=== PATIENT | female | born 1930 | race Caucasian/White ===

== ENCOUNTER 2017-04-22 05:57 | Inpatient (IN) ==
[2017-04-22] MEDS ORDERED: MAGNESIUM SULF RIDER 2 GM in PREMIX 1 EACH IV PRN (05:58)
[2017-04-22] MEDS ORDERED: diphenhydrAMINE CAP 25 MG CAPSULE PO ONE (05:58)
[2017-04-22] MEDS ORDERED: DIAZEPAM 5 MG TABLET PO ONE (05:58)
[2017-04-22] MEDS ORDERED: ASPIRIN 325 MG TABLET PO ONE (05:58)
[2017-04-22] MEDS ORDERED: POTASSIUM CHLORIDE RIDER 10 MEQ in PREMIX 1 EACH IV PRN (05:58)
[2017-04-22] MEDS ORDERED: DEXTROSE 5% NACL 0.45% 1,000 ML IV SCH (06:00)
[2017-04-22 07:34] LABS: Basophils # 0.1 10*3/uL (0.0-0.2); Basophils % 1.5 % (0.0-0.8); Eosinophils % 21.3 % (0.00-10.9); Hematocrit 36.6 VOL% (35.7-47.0); Hemoglobin 12.8 GM/DL (12.0-16.0); Immature Granulocytes % 0.7 %; Immature Granulocytes Absolute 0.06 #; Lymphocytes # 1.2 10*3/uL (1.4-4.0); Mean Corpuscular Hemoglobin 30 PG (27-34); Mean Corpuscular Volume 85.3 FL (87-102); Mean Platelet Volume 10.3 FL (9.6-12.0); Monocytes # 0.8 10*3/uL (0.11-0.8); Monocytes % 8.5 % (1.7-12.7); Platelet Count 184 T/CUMM (130-400); Red Blood Count 4.29 MC/CUMM (3.8-5.5); Red Cell Distribution Width 13.8 % (9.3-17.3); White Blood Count 9.1 T/CUMM (4-12)
[2017-04-22 07:46] LABS: INR 1.1; PT Patient Result 11.1 SECS
[2017-04-22 07:59] LABS: Calcium 9.6 MG/DL (8.5-10.1); Osmolality,Calculated 286.8 MOS/KG (273-304)
[2017-04-22] MEDS ORDERED: DIAZEPAM 5 MG TABLET ONE (08:11)
[2017-04-22] MEDS ORDERED: diphenhydrAMINE CAP 25 MG CAPSULE ONE (08:12)
[2017-04-22] MEDS ORDERED: HEPARIN/NACL 0.9% 2 UNITS/ML 1,000 ML IV ONE (08:15)
[2017-04-22] MEDS ORDERED: LIDOCAINE 1%/EPI INJ 20 ML VIAL ONE (08:26)
[2017-04-22] MEDS ORDERED: MIDAZOLAM 2 MG/2 ML VIAL ONE (08:50)
[2017-04-22] MEDS ORDERED: HYDROmorphone 2 MG/1 ML VIAL ONE (08:51)
[2017-04-22 09:08] LABS: Eosinophils 14 % (0-10); Hypochromasia 1+; Lymphocytes 12 % (20-55); Microcytosis 1+; Platelet Estimate Adequate; Polychromasia Slight; Segmented Neutrophils 65 % (50-85); Total Cells Counted 100
[2017-04-22] MEDS ORDERED: TIROFIBAN 5,000 MCG/100 ML PREMIX IV ONE (09:34)
[2017-04-22] MEDS ORDERED: HEPARIN 5,000 UNIT/1 ML VIAL ONE (09:34)
[2017-04-22] MEDS ORDERED: TIROFIBAN 5,000 MCG/100 ML PREMIX IV SCH (09:41)
[2017-04-22] MEDS ORDERED: CLOPIDOGREL 300 MG TABLET ONE (09:49)
[2017-04-22] MEDS ORDERED: predniSONE 20 MG TABLET PO PRN (10:15)
[2017-04-22] MEDS ORDERED: NITROGLYCERIN SL 0.4 MG TABLET SL PRN (10:15)
--- NOTE | 2017-04-22 11:21 | XRay Report ---
Exam: XR chest 1V portable Date: 04/22/2017 5:59 AM Indication: Chest pain Comparison: 06/03/2016 Technical: AP Findings: Cardiomegaly is present with previous sternotomy. Degenerative arthritic change present over the shoulders with high riding appearance the humeral head and subchondral cystic changes present. Mild shunt vascularity. Interval atelectatic change in the left base. Mediastinum is intact. Impression: 1. Cardiomegaly with tiny low volume left effusion 2. Previous sternotomy 3. Underlying component of mild fibrotic scarring in the lung morales 4. Degenerative arthritic change of the right shoulder PROCEDURE INTERPRETED AT [facility] Final Report Signed by: Dr. Ankit Bro
[2017-04-22] MEDS: ALBUTEROL/IPRATROPIUM 3 ML NEB RESP TX SCH ×2 (15:38→18:45)
[2017-04-22] MEDS: FUROSEMIDE 40 MG TABLET PO SCH (17:28)
[2017-04-22] MEDS ORDERED: BENZONATATE 100 MG CAPSULE PO PRN (18:26)
--- NOTE | 2017-04-22 18:44 | Event Note ---
Patient catheterization apparent intervention today. The patient was short of breath and coughing. She has COPD. She has normal ejection fraction normal LVDP on catheterization. The patient probably is having exacerbation of her COPD. She has not received any bronchodilator therapy today. Requested go ahead and continue her bronchodilator therapy give her a dose now. We will pursue other avenues if necessary.
[2017-04-22] MEDS ORDERED: ALBUTEROL/IPRATROPIUM 3 ML NEB RESP TX PRN (19:00)
[2017-04-22] MEDS: HYDROmorphone 2 MG/1 ML VIAL IV PRN (19:05)
[2017-04-22] MEDS: THEOPHYLLINE ER (24 HR) 400 MG CAPSULE PO SCH (21:45)
[2017-04-22] MEDS: POTASSIUM CHLORIDE 20 MEQ TABLET PO SCH (21:45)
[2017-04-22] MEDS: ISOSORBIDE MONONITRATE 30 MG TABLET PO SCH (21:45)
[2017-04-22] MEDS: ALBUTEROL 0.4 MG/ML 30 ML/BOTTLE PO SCH (21:45)
[2017-04-22] MEDS: CLOTRIMAZOLE 1% CREAM 15 GM TUBE TOP SCH (21:45)
[2017-04-22] MEDS: FAMOTIDINE 20 MG TABLET PO SCH (21:45)
[2017-04-23] MEDS: ALBUTEROL/IPRATROPIUM 3 ML NEB RESP TX SCH ×5 (00:44→22:39)
[2017-04-23 03:12] LABS: Basophils # 0.1 10*3/uL (0.0-0.2); Basophils % 1.1 % (0.0-0.8); Eosinophils # 1.5 10*3/uL (0.0-0.87); Eosinophils % 13.1 % (0.00-10.9); Hematocrit 33.6 VOL% (35.7-47.0); Hemoglobin 11.4 GM/DL (12.0-16.0); Immature Granulocytes % 0.5 %; Immature Granulocytes Absolute 0.06 #; Lymphocytes # 1.3 10*3/uL (1.4-4.0); Lymphocytes % 11.1 % (21.3-54.2); Mean Corpuscular HGB Conc 33.9 GM/DL (32-36); Mean Corpuscular Hemoglobin 29 PG (27-34); Mean Corpuscular Volume 85.9 FL (87-102); Mean Platelet Volume 10.2 FL (9.6-12.0); Monocytes # 1.4 10*3/uL (0.11-0.8); Monocytes % 11.5 % (1.7-12.7); Neutrophils # 7.4 10*3/uL (1.4-7.4); Neutrophils % 62.7 % (38.7-73.9); Platelet Count 191 T/CUMM (130-400); Red Blood Count 3.91 MC/CUMM (3.8-5.5); White Blood Count 11.7 T/CUMM (4-12)
[2017-04-23 03:43] LABS: Calcium 8.7 MG/DL (8.5-10.1); Magnesium 2.1 MG/DL (1.8-2.4); Osmolality,Calculated 281.3 MOS/KG (273-304); Potassium 4.3 MMOL/L (3.5-5.1)
[2017-04-23 03:48] LABS: Apearance,Urine CLEAR (Clear); Bilirubin,Urine Negative (Negative); Blood, Urine Negative (Negative); Glucose,Urine (UA) Negative (Negative); Hyaline Casts,Urine 1 /LPF (0-3); Ketones,Urine Negative (Negative); Nitrite,Urine Negative (Negative); Protein,Urine Negative; RBC,Urine 1 /HPF (0-4); Renal Epithelial Cells,Urine Occasional /HPF (<1); Squamous Epithelial Cell,Urine Occasional /HPF (0-10); Urine Color Straw (Yellow); Urine Urobilinogen < 2.0 EU/DL (0.2-1.0); WBC,Urine 3 /HPF (0-6)
[2017-04-23 03:57] LABS: Band Neutrophils 2 % (0-10); Eosinophils 12 % (0-10); Lymphocytes 10 % (20-55); Platelet Estimate Normal; Segmented Neutrophils 66 % (50-85); Total Cells Counted 100
[2017-04-23] MEDS: HYDROmorphone 2 MG/1 ML VIAL IV PRN ×3 (04:33→23:33)
--- NOTE | 2017-04-23 07:22 | Order Completion Report ---
See report scanned to EMR
[2017-04-23] MEDS: ASPIRIN EC 81 MG TABLET PO SCH (09:31)
[2017-04-23] MEDS: MULTIVITAMIN (CENTRUM) TABLET PO SCH (09:31)
[2017-04-23] MEDS: FUROSEMIDE 40 MG TABLET PO SCH ×2 (09:31→17:37)
[2017-04-23] MEDS: MONTELUKAST 10 MG TABLET PO SCH (09:32)
[2017-04-23] MEDS: POTASSIUM CHLORIDE 20 MEQ TABLET PO SCH ×2 (09:32→21:29)
[2017-04-23] MEDS: CARVEDILOL 12.5 MG TABLET PO SCH (09:32)
[2017-04-23] MEDS: CLOPIDOGREL 75 MG TABLET PO SCH (09:33)
[2017-04-23] MEDS: FAMOTIDINE 20 MG TABLET PO SCH ×2 (09:33→21:28)
--- NOTE | 2017-04-23 09:42 | XRay Report ---
XR chest 2V Date: 04/23/2017 7:25 AM History: Cough, fever Comparison: 04/22/2017 Technique: PA and lateral chest Findings: The heart appears smaller in size with prior median sternotomy and multiple cardiac coronary artery stents. The lungs appear more over expanded with chronic scarring. Ill-defined density laterally in the left midlung zone. Stable mediastinum with degenerative changes. Prior cholecystectomy. Impression: Status post median sternotomy with chronic scarring. The lungs appear more over expanded with atelectasis/infiltration at the lung bases. Indeterminate ill-defined 18 mm density laterally in the left midlung zone near the level of the left sixth anterior rib. Follow-up chest x-ray is recommended. PROCEDURE INTERPRETED AT [facility] DEPARTMENT OF RADIOLOGY Final Report Signed by: Dr. Felipa Mays
--- NOTE | 2017-04-23 11:14 | Pulmonology Consult Note ---
History of Present Illness Chief complaint: Flap in windpipe. Cough. Post cardiac cath History of present illness: Ms. Floyd is a 87 year old white female who I have been asked to see in pulmonary consultation. This patient is post cardiac catheterization. She had a sten they do not have a lot of insight and I do not think there are going to require this. T placed in the mid circumflex. There was a widely patent single vein graft to the right coronary artery. There was moderate disease in the LAD with a distal myocardial bridge. There was normal left ventricular size and function. This patient and her daughter complain of cough which is worse recently. This however is been present on a long-term basis. I saw the patient in my office on 03/05/2017 and subsequently referred her to Dr. Ochoa to look for worsening of her cardiac disease. At that time the patient complained that was a flap in her trachea. I spent an extremely long time with the patient and her daughter discussing this and a number of other problems. They do not have a lot of insight even with very good explanations. This is not likely to improve. Allergies. Zocor. Darvocet/Darvon. Sulfa. TriCor made her feel terrible. Amoxicillin caused itching and rash. Prednisone "threw me crazy". Her daughter added that prednisone made her mean. Allopurinol caused diarrhea Home medicines. See below Hospital medicines. See below Immunology. Pneumovax was given 2007. Patient gets yearly flu shot. Past history. COPD. Bronchospastic disease. 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 Degenerative joint disease. Chronic renal failure. 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 Venous bypass to the right coronary artery. Stent to the mid circumflex. Hyperlipidemia. Allergic sinusitis. Gout. Hypertension. Thoracic deformity. Sciatic. History of colon polyps. History of mild peptic ulcer disease followed by Dr. Ady Cuello at [facility]. History of recurrent muscle spasms over the thoracolumbar junction associated with turning. Previous fracture left foot in February 2010 which was treated by Dr. Shawn Burnett. [address] April Ray for colitis with eosinophilia and she improved with treatment. My records show that Dr. Ray to told the patient and her daughter that this was micro-cystic colitis with associated eosinophilia and that he felt there was about a 30% chance she would have another attack. He said if this occurred again he would treat her in a similar fashion. In December 2008 she had a random colon biopsy that showed moderate superficial chronic inflammation with focal mild surface erosions and hemorrhage within the lamina propria. The pathologist, Dr. Mendoza said the differential would include early ischemic colitis, self-limiting colitis, diverticulitis, possible early inflammatory disease. Colon biopsies done 2015 showed benign colon mucosa with increased inflammation in the superficial lamina propria and increased eosinophilia with surface epithelial consistent with with resolving self-limited colitis. At that time a jejunal biopsy was normal. 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 Family history of brother and father had heart attacks. Sister had colon cancer. Aside suddenly. Her brother had asthma. Surgeries. Rotator cuff surgery by Dr. Emmy Viera in May 2010. Coronary artery bypass graft in 2002. Cholecystectomy around 1955. Appendectomy. Tubal ligation 1960. Hysterectomy 1975. Social history. . Retired. Worked as an temporary staff accountant. Denies alcohol and tobacco. Followed in [facility] by Dr. Altaf Bailey. Patient usually is seen in my office along with her daughter Chayo Pulmonary function test done 08/03/2005 showed 1. Mild obstructive disease. 2. Marked positive response to inhaled bronchodilators 3. No diffusion defect. 4. Maximum voluntary ventilation after inhaled bronchodilators was 62 L/min was 87% of predicted Chest x-ray. 04/23/2017. Heart size is normal. Pulmonary arteries normal both hilar areas contain interstitial scarring with calcification that has a benign appearance. Mediastinum is normal wire sutures are present in the sternum lung morales are slightly hyperinflated with no masses infiltrates or pulmonary edema. There is mild kyphosis of the dorsal spine. Lab. White count 11,900 with 63 segs 11 lymphs and 11 monos. H&H 11.4/33.6. Platelets are 191 7000. Electrolytes are normal. Creatinine is 1.3 with a BUN of 13. Urinalysis is normal. Glucoses are normal Physical exam. Vital signs. Normal. See below Psychiatric. Oriented 3 Neurologic. Cranial nerves are intact with decreased hearing acuity. Long track motor functions intact Head eyes ears nose and throat are normal. Neck. Symmetrical. No masses. Lymphatics. No submandibular cervical supraclavicular or epitrochlear adenopathy. Chest symmetrical kyphotic. Tracheal and large airway congestion with a cough. No chest wall tenderness. I do not hear any wheezes. Patient has mild pectus excavatum. Heart. Regular. No gallop Breast deferred Abdomen. No organomegaly. Nontender. Bowel sounds are present. and rectal deferred Extremities trace of edema below each medial malleolus. There are broken veins and some associated brownish skin discoloration secondary to chronic venous stasis. Patient has small lipoma over the proximal right medial tibial area. Arterial carotid upstroke is normal upper extremity pulses are palpable lower extremity pulses are nonpalpable. Venous exam. Neck and upper extremities are normal lower extremities show chronic venous stasis Musculoskeletal mild loss of normal curvature cervical thoracic and lumbar spine. Pectus excavatum. Degenerative changes of the hands and feet. The remainder the physical exam is noncontributory. Impression. 1. Mild obstructive lung disease. Asthma. 2. Bronchitis with a cough. Patient says she cannot produce any sputum. 3. Complaint of left flap over her trachea 4. Arteriosclerotic heart disease. Post cardiac cath. Stent placed in circumflex artery. 5. High blood pressure 6. Gout 7. Degenerative joint disease 8. See past Plan. 1. Sputum for Gram stain culture and sensitivity 2. Duo nebs 3. Inhalation therapy with Pulmozyme twice a day 4. Mucinex 600 mg p.o. twice daily 5. If you think is safe to evaluated with bronchoscopy I can do it while she is here. If you think it is better to wait we can arrange that later on. Home Medications Medication Instructions Recorded Confirmed Type Albuterol/Ipratropium Neb [Duoneb] 3 ml RESP TX RT Q6H 11/17/14 04/22/17 History Aspirin [Ecotrin] 81 mg PO DAILY 11/17/14 04/22/17 History Carvedilol [Coreg] 12.5 mg PO DAILY 11/17/14 04/22/17 History Furosemide Tab [Lasix Tab] 40 mg PO BID DIURETIC 11/17/14 04/22/17 History Montelukast Tab [Singulair Tab] 10 mg PO DAILY 11/17/14 04/22/17 History Multivitamin [Multivitamins] 1 each PO DAILY 11/17/14 04/22/17 History Potassium Chloride 20 meq PO BID 11/17/14 04/22/17 History Theophylline ER Tab (24 Hr) 200 tablet PO BID 11/17/14 04/22/17 History Famotidine 20 mg PO BID 04/21/17 04/22/17 History Ipratropium/Albuterol Inhaler 1 puff INH QID PRN 04/21/17 04/22/17 History [Combivent Respimat Inhaler] Nitroglycerin [Nitroglycerin SL 0.4 mg SL Q5M PRN 04/21/17 04/22/17 History Tab] Rosuvastatin Calcium 5 mg PO QOTHER DAY 04/21/17 04/22/17 History predniSONE TAB [PredniSONE] 20 mg PO DAILY PRN 04/21/17 04/22/17 History Albuterol Liquid [Proventil Liquid] 2 mg PO BID 04/22/17 04/22/17 History Isosorbide Mononitrate [Isosorbide 30 mg PO BEDTIME 04/22/17 04/22/17 History Mononitrate ER] Allergies Allergy/AdvReac Type Severity Reaction Status Date / Time acetaminophen Allergy Intermediate Unknown/Unable Verified 11/17/14 07:22 [From Darvocet-N 100] to obtain Amoxicillin Allergy Intermediate RASH Verified 11/17/14 07:22 fentanyl Allergy Intermediate Unknown/Unable Verified 11/17/14 07:22 to obtain morphine Allergy Intermediate Unknown/Unable Verified 11/17/14 07:22 to obtain propoxyphene Allergy Intermediate Unknown/Unable Verified 11/17/14 07:22 [From Darvocet-N 100] to obtain simvastatin [From Zocor] Allergy Intermediate Joint Pain Verified 11/17/14 07:22 sulfamethoxazole Allergy Intermediate RASH Verified 11/17/14 07:22 [From Bactrim] trimethoprim [From Bactrim] Allergy Intermediate RASH Verified 11/17/14 07:22 Exam (Pulmonay) H&P - Constitutional Vitals: Period Temp Pulse Resp BP Sys/Larkin Pulse Ox Last 24 Hr 98.3 F-101.9 F 53-93 16-20 98-148/45-83 91-100 Medical,Surgical,& Family Hx - Medical History Cardio: History of: CHF, CAD, [place] (2 heart attacks.) No history of: Cardiac Dysrhythmia, Pacemaker Comment Only: Hypertension (medication) Neurology: No history of: Brain Aneurysm, Cerebrovascular Accident, Migraine, Seizures HEENT: History of: Ear Problem (hearing aids left and right), Dental Problems ( upper and lower) No history of: Glaucoma Rheumatology: History of;: Gout, Rheumatoid Arthritis Respiratory: History of: Asthma, COPD Comment Only: Respiratory Problems (had flu vaccine up to date on pnuemonia) Gastrointestinal: History of: GERD, Polyps, GI Problems (dysphagia) Musculoskeletal: History of: Back/Neck Problems (disk problems in neck), Musculoskeletal Problems (arthritis) Hematology: No history of: Blood Transfusion Reaction Other: History of: Anesthesia Reactions (vomiting after anesthesia) - Surgical History Cardiac Surgeries: Sugical HX of: Cardiac Catheterization, Cardiac Surgery (1` bypass, 2 stents) Neurologic Surgeries: Patient denies: Brain Aneurysm HEENT Surgeries: Surgical HX of: Eye Surgery (cataract surgery both eyes), Tonsilectomy & Adenoidectomy Abdominal Surgeries: Surgical HX of: Abdominal Surgery, Appendectomy, Cholecystectomy, Colonoscopy Reproductive Surgeries: Surgical HX of;: Hysterectomy Patient denies;: Genitourinary Surgery Orthopedic Surgeries: Surgical HX of;: Orthopedic Surgery (right rotator cuff surgery) - Family History Family History: Reports;: Family Cancer (mother-ovarian, sister-colon,), Family Heart Disease (father brother) - Social History Smoking Status: Former smoker Frequency of Alcohol Use: None Type of Drug Use: None Results - Labs CBC & BMP: 04/23/17 02:58 04/23/17 02:58 Quality Measures - VTE Contraindication to Pharmacological VTE Prophylaxis: High Risk of Bleeding Specialty Discharge - Follow Up or Referrals
[2017-04-23] MEDS: DORNASE ALFA 2.5 MG/2.5 ML VIAL RESP TX SCH ×3 (13:38→21:31)
--- NOTE | 2017-04-23 14:02 | Cardiology Progress Note ---
<Flores Calles E - Last Filed: 04/23/17 13:43> Assessment and Plan - Time spent with patient Time spent with patient: Greater than 30 minutes (1) CAD (coronary artery disease) Status: Chronic Assessment and plan: SEE PLAN OF CARE LISTED BELOW Current Visit: Yes (2) Hypertension Status: Chronic Assessment and plan: SEE PLAN OF CARE LISTED BELOW Current Visit: Yes (3) Dyslipidemia Status: Chronic Assessment and plan: SEE PLAN OF CARE LISTED BELOW Current Visit: Yes (4) Dementia Status: Chronic Assessment and plan: SEE PLAN OF CARE LISTED BELOW Current Visit: Yes (5) Debilitated patient Status: Chronic Assessment and plan: SEE PLAN OF CARE LISTED BELOW Current Visit: Yes (6) Abnormal chest x-ray Status: Acute Assessment and plan: SEE PLAN OF CARE LISTED BELOW Current Visit: Yes (7) Fever Status: Acute Assessment and plan: SEE PLAN OF CARE LISTED BELOW Current Visit: Yes (8) Risk for falls Status: Chronic Assessment and plan: SEE PLAN OF CARE LISTED BELOW Current Visit: Yes Cardiology - PN: Subj Interval history: YOUTH CAREER SPECIALIST: DR. GONZALEZ OCHOA FINGER GRIP MACHINE OPERATOR: DR. PRASAD PUENTE PCP: DR. RICCO QUINONEZ SUMMARY: Ms. Floyd, 87WF, admitted April 22, 2017 for elective cardiac catheterization for recent abnormal stress test, LVEF 60%. She required PCI of the mid circumflex (see cardiac catheterization for additional information). She is followed for chronic stable CAD, COPD, hypertension, dyslipidemia and dementia. Patient has had shortness of breath with a cough for approximately 3 months. Patient has been instructed regarding the need for fiberoptic bronchoscopy to be performed by Dr. Puente. However, patient required cardiac catheterization prior to proceeding with FOB. 2016: Patient continues to be followed for chronic, stable CAD, hypertension, dyslipidemia, dementia. More acutely, she is being followed for recent PCI to circumflex coronary artery with SABINE. Also, patient has been febrile during the night with a temperature of 101.9F noted. Patient has dementia and most of this information I have obtained is from her daughter who is present at the bedside. No complaints of chest pain, heaviness or tightness. She continues to have a dry and hacking cough. Daughter reports that her mother does have frequent choking when swallowing certain liquids and certain foods. Chest x-ray reviewed this morning. It is abnormal. I have discussed this case with KATIE Granger, and at this time will treat with antibiotics to include Levaquin. I am concerned the patient may be aspirating and I will ask for swallow evaluation today. I have also discussed with Dr. Gonzalez Ochoa regarding the need for bronchoscopy. There are no cardiac contraindications to proceeding with FOB. Certainly, patient does have a significant amount of dementia and has been somewhat aggressive in her room today. We discussed the possibility of swing bed at discharge versus LTAC versus hospice versus home health versus [facility] placement. The daughter is considering all of these choices at this point. Right groin is soft, free of hematoma or bruit. I will further discuss with Dr. Scott and await additional recommendations. April 15, 2017 review of systems: Unable to obtain review of systems from patient but daughter reports the following: Cardiovascular: No chest pain, heaviness, tightness Pulmonary: Dry hacking cough, mild dyspnea on exertion. Gastrointestinal: No diarrhea, no abdominal bloating or pain IMPRESSION/PLAN: 1. CAD - status post PCI to circumflex. Continue aspirin, Plavix. Continue beta-sonja, statin. Blood pressure will not allow for introduction of MELO inhibitor. 2. SHORTNESS OF BREATH WITH ABNORMAL CHEST X-RAY - running a fever overnight. Outpatient fiberoptic bronchoscopy had been scheduled. Initiate Levaquin and anticipate patient may require FOB tomorrow. Will further discuss with pulmonology. Adding respiratory treatments, incentive spirometry. Swallow eval 3. HYPERTENSION - will continue to follow along and adjust medications accordingly during hospital stay. Would like to introduce an MELO inhibitor and hopefully, prior to discharge her blood pressure will allow for introduction 4. DYSLIPIDEMIA - continue lipid-lowering agent. 5. DEMENTIA - considering [facility] evaluation. Daughter considering. 6. FEVER - blood cultures pending, UA negative. Chest x-ray is abnormal. Treating for possible pneumonia versus other infectious process. 7. DEBILITATED PATIENT - consulted case management this morning to discuss options at discharge. 8. HIGH FALLS RISK - utilizing prevention of falls protocol. Exam (Progress Note) - Constitutional Vitals: Period Temp Pulse Resp BP Sys/Larkin Pulse Ox Last 24 Hr 98.3 F-101.9 F 53-93 16-20 98-148/45-83 91-100 Exam: General: [Appears well with no apparent distress.] [Pleasant and cooperative. ] [Appears comfortable.] HEENT: [PERRL, normocephalic, atraumatic. Mucous membranes moist. No jaundice noted. Conjunctiva moist and clear, sclerae anicteric] Neck: No JVD/HJR, no thyromegaly or lymphadenopathy noted. No carotid bruit appreciated Cardiac: [Regular rate and rhythm.] [No murmur rub or gallop.] Lungs: [Inspiratory crackles noted throughout both lung morales. No orthopnea] Using oxygen intermittently Abdomen: Soft, bowel sounds normoactive. Nontender and nondistended. No abdominal bruit or thrill noted. No masses noted. Musculoskeletal: No fluid collection. Decreased range of motion is noted. Extremities: Right groin soft, free of hematoma or bruit. No clubbing, cyanosis noted. [ No edema noted.] Upper extremity pulses 2+. Lower extremity pulses 2+. Capillary refill less than 3 seconds. Skin: No unusual lesions or rashes. No skin breakdown appreciated. Neuro: Awake, alert and oriented to person. Moves all extremities well without hemiparesis or paralysis. No essential tremor is appreciated. Result/EKG - Labs CBC & BMP: 04/23/17 02:58 04/23/17 02:58 Lab Results: I have reviewed the past 24 hour labs Labs: Laboratory Results - last 24 hr 04/22/17 04/23/17 04/23/17 19:23 01:30 02:58 WBC RBC Hgb Hct MCV MCH MCHC RDW Plt Count MPV Neut % (Auto) Lymph % (Auto) [place]bert % (Auto) Eos % (Auto) Baso % (Auto) Neut # (Auto) Lymph # (Auto) [place] # (Auto) Eos # (Auto) Baso # (Auto) Total Counted Immature Gran % Nucleated RBC % Immature Gran # Segmented Neutrophils Band Neutrophils Lymphocytes Monocytes Eosinophils Nucleated RBCs # Platelet Estimate Immature Plt Fraction Sodium Potassium Chloride Carbon Dioxide Anion Gap BUN Creatinine GFR Calculation BUN/Creatinine Ratio Glucose Calculated Osmolality Calcium Magnesium Troponin I 0.032 0.087 H D Urine Color Straw Urine Appearance Clear Urine pH 5.0 Ur Specific Odin 1.010 Urine Protein Negative Urine Glucose (UA) Negative Urine Ketones Negative Urine Blood Negative Urine Nitrate Negative Urine Bilirubin Negative Urine Urobilinogen < 2.0 H Urine Leukocytes Negative Urine RBC 1 Urine WBC 3 Ur Squamous Epith Cells Occasional Ur Renal Epithelial Cell Occasional Hyaline Casts 1 Ur Culture Indicated? Not indicated 04/23/17 04/23/17 02:58 02:58 WBC 11.7 RBC 3.91 Hgb 11.4 L Hct 33.6 L MCV 85.9 L MCH 29 MCHC 33.9 RDW 14.0 Plt Count 191 MPV 10.2 Neut % (Auto) 62.7 Lymph % (Auto) 11.1 L [place] % (Auto) 11.5 Eos % (Auto) 13.1 H Baso % (Auto) 1.1 H Neut # (Auto) 7.4 Lymph # (Auto) 1.3 L [place] # (Auto) 1.4 H Eos # (Auto) 1.5 H Baso # (Auto) 0.1 Total Counted 100 Immature Gran % 0.5 Nucleated RBC % 0.0 Immature Gran # 0.06 Segmented Neutrophils 66 Band Neutrophils 2 Lymphocytes 10 L Monocytes 10 Eosinophils 12 H Nucleated RBCs # 0.00 Platelet Estimate Normal Immature Plt Fraction 0.0 Sodium 141 Potassium 4.3 Chloride 108 H Carbon Dioxide 28 Anion Gap 9.3 BUN 13 Creatinine 1.30 H GFR Calculation 38 BUN/Creatinine Ratio 10.00 Glucose 121 H Calculated Osmolality 281.3 Calcium 8.7 Magnesium 2.1 Troponin I Urine Color Urine Appearance Urine pH Ur Specific Od[place] Urine Protein Urine Glucose (UA) Urine Ketones Urine Blood Urine Nitrate Urine Bilirubin Urine Urobilinogen Urine Leukocytes Urine RBC Urine WBC Ur Squamous Epith Cells Ur Renal Epithelial Cell Hyaline Casts Ur Culture Indicated? - Diagnostic Findings Procedure: Chest x-ray: report reviewed by me - EKG EKG results: interpreted by me EKG shows: sinus rhythm Quality Measures - VTE Contraindication to Pharmacological VTE Prophylaxis: High Risk of Bleeding Specialty Discharge - Follow Up or Referrals <Ricco Scott - Last Filed: 04/23/17 16:40> Cardiology - PN: Subj Interval history: Patient personally reviewed and examined and chart reviewed. Discussed this case with Flores Calles NP and agree with the evaluation and assessment and plan. The patient's daughter was present on my evaluation. Patient cardiac standpoint post intervention the circumflex artery is doing very well. Not having any cardiac symptomatology or problems. She does note after procedure and not developed fever cough congestion in June kidding type symptomatology. In talking with the daughter the unit the patient she has been having a lot of coughing here the last several days of not a couple weeks or so. Dr. Ross of pulmonary medicine is evaluated the patient is treating her with antibiotics at this time. She certainly may have bronchitis or an aspiration pneumonia. She has chronic lung disease is followed by him for this. At this time we will continue to monitor her from a cardiac standpoint and make further reductions as appropriate needed. Exam (Progress Note) - Constitutional Vitals: Period Temp Pulse Resp BP Sys/Larkin Pulse Ox Last 24 Hr 98.8 F-101.9 F 73-96 16-20 98-148/47-83 91-98 Result/EKG - Labs CBC & BMP: 04/23/17 02:58 04/23/17 02:58 Labs: Laboratory Results - last 24 hr 04/22/17 04/23/17 04/23/17 19:23 01:30 02:58 WBC RBC Hgb Hct MCV MCH MCHC RDW Plt Count MPV Neut % (Auto) Lymph % (Auto) [place] % (Auto) Eos % (Auto) Baso % (Auto) Neut # (Auto) Lymph # (Auto) [place] # (Auto) Eos # (Auto) Baso # (Auto) Total Counted Immature Gran % Nucleated RBC % Immature Gran # Segmented Neutrophils Band Neutrophils Lymphocytes Monocytes Eosinophils Nucleated RBCs # Platelet Estimate Immature Plt Fraction Sodium Potassium Chloride Carbon Dioxide Anion Gap BUN Creatinine GFR Calculation BUN/Creatinine Ratio Glucose Calculated Osmolality Calcium Magnesium Troponin I 0.032 0.087 H D Urine Color Straw Urine Appearance Clear Urine pH 5.0 Ur Specific [place] 1.010 Urine Protein Negative Urine Glucose (UA) Negative Urine Ketones Negative Urine Blood Negative Urine Nitrate Negative Urine Bilirubin Negative Urine Urobilinogen < 2.0 H Urine Leukocytes Negative Urine RBC 1 Urine WBC 3 Ur Squamous Epith Cells Occasional Ur Renal Epithelial Cell Occasional Hyaline Casts 1 Ur Culture Indicated? Not indicated 04/23/17 04/23/17 02:58 02:58 WBC 11.7 RBC 3.91 Hgb 11.4 L Hct 33.6 L MCV 85.9 L MCH 29 MCHC 33.9 RDW 14.0 Plt Count 191 MPV 10.2 Neut % (Auto) 62.7 Lymph % (Auto) 11.1 L [place]bert % (Auto) 11.5 Eos % (Auto) 13.1 H Baso % (Auto) 1.1 H Neut # (Auto) 7.4 Lymph # (Auto) 1.3 L [place] # (Auto) 1.4 H Eos # (Auto) 1.5 H Baso # (Auto) 0.1 Total Counted 100 Immature Gran % 0.5 Nucleated RBC % 0.0 Immature Gran # 0.06 Segmented Neutrophils 66 Band Neutrophils 2 Lymphocytes 10 L Monocytes 10 Eosinophils 12 H Nucleated RBCs # 0.00 Platelet Estimate Normal Immature Plt Fraction 0.0 Sodium 141 Potassium 4.3 Chloride 108 H Carbon Dioxide 28 Anion Gap 9.3 BUN 13 Creatinine 1.30 H GFR Calculation 38 BUN/Creatinine Ratio 10.00 Glucose 121 H Calculated Osmolality 281.3 Calcium 8.7 Magnesium 2.1 Troponin I Urine Color Urine Appearance Urine pH Ur Specific [place] Urine Protein Urine Glucose (UA) Urine Ketones Urine Blood Urine Nitrate Urine Bilirubin Urine Urobilinogen Urine Leukocytes Urine RBC Urine WBC Ur Squamous Epith Cells Ur Renal Epithelial Cell Hyaline Casts Ur Culture Indicated?
[2017-04-23] MEDS: CLOTRIMAZOLE 1% CREAM 15 GM TUBE TOP SCH ×2 (17:36→21:27)
[2017-04-23] MEDS: ALBUTEROL 0.4 MG/ML 30 ML/BOTTLE PO SCH ×3 (17:36→21:39)
[2017-04-23] MEDS: LEVOFLOXACIN INJ 250 MG in PREMIX 1 EACH IV SCH (19:20)
[2017-04-23] MEDS: THEOPHYLLINE ER (24 HR) 400 MG CAPSULE PO SCH (21:28)
[2017-04-23] MEDS: ISOSORBIDE MONONITRATE 30 MG TABLET PO SCH (21:28)
[2017-04-24 05:00] LABS: Basophils # 0.1 10*3/uL (0.0-0.2); Basophils % 1.3 % (0.0-0.8); Eosinophils # 1.2 10*3/uL (0.0-0.87); Eosinophils % 13.5 % (0.00-10.9); Hematocrit 32.1 VOL% (35.7-47.0); Hemoglobin 10.8 GM/DL (12.0-16.0); Immature Granulocytes % 0.6 %; Immature Granulocytes Absolute 0.05 #; Lymphocytes # 1.4 10*3/uL (1.4-4.0); Lymphocytes % 15.4 % (21.3-54.2); Mean Corpuscular HGB Conc 33.6 GM/DL (32-36); Mean Corpuscular Hemoglobin 29 PG (27-34); Mean Corpuscular Volume 84.9 FL (87-102); Mean Platelet Volume 10.5 FL (9.6-12.0); Monocytes # 1.2 10*3/uL (0.11-0.8); Monocytes % 12.8 % (1.7-12.7); Neutrophils # 5.1 10*3/uL (1.4-7.4); Neutrophils % 56.4 % (38.7-73.9); Platelet Count 174 T/CUMM (130-400); Red Blood Count 3.78 MC/CUMM (3.8-5.5); Red Cell Distribution Width 13.7 % (9.3-17.3); White Blood Count 9.1 T/CUMM (4-12)
[2017-04-24 05:09] LABS: INR 1.1; PT Patient Result 11.6 SECS; Partial Thromboplastin Time 31.9 SECS (0-40)
[2017-04-24 05:27] LABS: Eosinophils 17 % (0-10); Giant Platelets Few; Hypochromasia 1+; Lymphocytes 17 % (20-55); Microcytosis Slight; Platelet Estimate Normal; Segmented Neutrophils 57 % (50-85); Total Cells Counted 100
[2017-04-24 05:34] LABS: Calcium 8.3 MG/DL (8.5-10.1); Magnesium 2.1 MG/DL (1.8-2.4); Osmolality,Calculated 277.4 MOS/KG (273-304)
[2017-04-24] MEDS ORDERED: diphenhydrAMINE 50 MG/1 ML VIAL IM ONE (07:00)
[2017-04-24] MEDS ORDERED: BENZONATATE 100 MG CAPSULE PO ONE (07:00)
[2017-04-24] MEDS ORDERED: LIDOCAINE 2% 20 ML VIAL RESP TX ONE (07:30)
[2017-04-24] MEDS ORDERED: LIDOCAINE 2% VISCOUS 100 ML BOTTLE SWISH/SPIT ONE (07:30)
[2017-04-24] MEDS ORDERED: LIDOCAINE 1% 20 ML VIAL MISC INJ ONE (07:30)
[2017-04-24] MEDS: ALBUTEROL/IPRATROPIUM 3 ML NEB RESP TX SCH (07:33)
[2017-04-24] MEDS ORDERED: MIDAZOLAM 2 MG/2 ML VIAL ONE (08:07)
--- NOTE | 2017-04-24 08:58 | Event Note ---
In-hospital therapeutic and diagnostic bronchoscopy. Bilateral bronchoalveolar lavage. Specimen sent for cytology, Gram stain, bacterial culture, AFB stains and culture, fungal stains and cultures This is a 89-year-old white female with long history of COPD and a chronic cough this is worsened recently. I have seen her in my office prior to this. She claims there is a flap in her trachea prevents her from mobilizing sputum and breathing well. She has a long history of tobacco abuse her chest x-ray shows no definite abnormalities. For these reasons she is evaluated with fiberoptic bronchoscopy The vocal cords were normal. The cough reflex was good. The trachea was erythematous slightly edematous in the proximal portion and this area collapsed to a diameter of 10-20% of that seen with inspiration. This is the flap that she feels, the collapsibility of her trachea when she exhales when she coughs. The mid and distal trachea was also markedly collapsible but not erythematous. The donnell was sharp. The right mainstem bronchus contained a good bit of thick tenacious stringy clear sputum and this extended into the right upper lung right middle lung and right lower lungs. These areas were lavaged until clear. There was mild friability of the mucosa in the right lower lung. No endobronchial lesions to suggest cancer were seen The left mainstem bronchus the left upper lung the left lower lung contain sputum similar to that seen on the right. Large and small airways were markedly collapsible. There were mild erosions at the orifice of the left upper lung and also in several other subcu segments in the left lower lung. No endobronchial lesions to suggest cancer were seen. The patient tolerated the procedure well I will let her watch. Afterwards she asked what she could do to improve the flap and I demonstrated pursed lip breathing for her. Note that she has not been particularly compliant patient in the past. I also woke to patient's daughter up and reviewed the findings with her KATIE Granger nurse practitioner was present when I was talking to the patient and when I was talking to the patient's daughter Impression. 1. Erosive friable proximal tracheitis. 2. Markedly collapsible trachea, especially proximal. Collapsibility here with expiration and with cough produces the flap feeling that the patient complains of. 3. Severe COPD with markedly collapsible large and small airways. 4. Scattered areas of erosive bronchitis most prominent at the bases of the lung. 5. Retained secretions 6. Chronic ineffective cough 7. Significant history of tobacco abuse Patient plan. 1. Pursed lip breathing 2. Antibiotics. Levaquin 250 mg daily for 14 days. 3. From my standpoint patient can be discharged when cardiology feels she is safe 4. This patient has a follow-up appointment to see me.
[2017-04-24] MEDS ORDERED: ROSUVASTATIN 10 MG TABLET PO SCH (09:00)
--- NOTE | 2017-04-24 09:58 | Discharge Summary ---
Hospital Course - Hospital Course Hospital Course: ICE CREAM FREEZER HELPER: DR. GONZALEZ OCHOA OYSTER CULLER: DR. ANKIT PUENTE PCP: DR. RICCO BAILEY SUMMARY: Ms. Floyd, 87WF, admitted April 22, 2017 for elective cardiac catheterization for recent abnormal stress test, LVEF 60%. She required PCI of the mid circumflex (see cardiac catheterization for additional information). She is followed for chronic stable CAD, COPD, hypertension, dyslipidemia and dementia. Patient has had shortness of breath with a cough for approximately 3 months. Patient had been instructed regarding the need for fiberoptic bronchoscopy to be performed by Dr. Puente. However, patient required cardiac catheterization prior to proceeding with FOB. For this reason she underwent cardiac catheterization requiring PCI to circumflex. April 24, 2017, patient underwent fiberoptic bronchoscopy performed by Dr. Puente. She tolerated the procedure well. See report for additional information. Patient is stable for discharge. She will be discharged on Levaquin 250 mg orally daily 14 days. She will be given a follow-up appoint with Dr. Ohcoa in approximately 3 weeks. She will be given a follow-up appointment with Dr. Puente on the same day if possible. Having felt she is met maximal medical therapy, patient is being discharged home with home health in stable condition. Cardiac discharge medications include the following: Aspirin 81 mg orally daily Coreg 12.5 mg orally ONCE DAILY Plavix 75 mg orally daily Lasix 40 mg orally twice daily Imdur 30 mg orally each evening Crestor 5 mg orally every other evening She will resume other noncardiac home medications at discharge Levaquin 250 mg 1 p.o. daily 14 days (new) - Time spent with patient Time with patient DS: Greater than 30 minutes Diagnosis - Discharge Diagnosis (1) CAD (coronary artery disease) Status: Chronic (2) Hypertension Status: Chronic (3) Dyslipidemia Status: Chronic (4) Dementia Status: Chronic (5) Debilitated patient Status: Chronic (6) Abnormal chest x-ray Status: Acute (7) Fever Status: Resolved (8) Risk for falls Status: Chronic (9) Tracheitis Status: Acute (10) COPD (chronic obstructive pulmonary disease) Status: Acute (11) Bronchitis Status: Acute Specialty Discharge - Follow Up or Referrals Follow up with: Brodie Ochoa MD [Physician] - (3 weeks) Ankit Puente MD [Physician] - (3 weeks. prefer to have appointment with Dr. Puente the same day as Dr. Ochoa's appointment if possible. ) Discharge Plan - Discharge Data Disposition: Home Health Service Condition at Discharge: Stable Discharge Diet: heart healthy Activity: other (Post cath expectations) Hygiene: other (Post cath expectations) Weight Bearing at Discharge: other (Post cath expectations) Driving: other (Post cath expectations) Contact your physician if you experience:: fever over 101, Difficulty voiding, Redness or swelling, Nausea/Vomiting, Shortness of breath, Bleeding, pain uncontrolled by pain medications - Discharge Medications New Benzonatate [Tessalon] 200 mg PO TID PRN #90 capsule PRN Reason: Cough Clopidogrel [Plavix] 75 mg PO DAILY #30 tablet Clotrimazole 1% Cream [Lotrimin 1% Cream] 1 applic TOP BID applic guaiFENesin ER TAB [Mucinex] 600 mg PO BID #60 tablet Continue Theophylline ER Tab (24 Hr) 200 tablet PO BID Potassium Chloride 20 meq PO BID Montelukast Tab [Singulair Tab] 10 mg PO DAILY Multivitamin [Multivitamins] 1 each PO DAILY Furosemide Tab [Lasix Tab] 40 mg PO BID DIURETIC Albuterol/Ipratropium Neb [Duoneb] 3 ml RESP TX RT Q6H Carvedilol [Coreg] 12.5 mg PO DAILY Aspirin [Ecotrin] 81 mg PO DAILY Rosuvastatin Calcium 5 mg PO QOTHER DAY Ipratropium/Albuterol Inhaler [Combivent Respimat Inhaler] 1 puff INH QID PRN PRN Reason: Shortness Of Breath/Wheezing Famotidine 20 mg PO BID predniSONE TAB [PredniSONE] 20 mg PO DAILY PRN PRN Reason: Itching Nitroglycerin [Nitroglycerin SL Tab] 0.4 mg SL Q5M PRN PRN Reason: Chest Pain Albuterol Liquid [Proventil Liquid] 2 mg PO BID Isosorbide Mononitrate [Isosorbide Mononitrate ER] 30 mg PO BEDTIME - Follow Up or Referral Follow Up: Brodie Ochoa MD [Physician] - (3 weeks) Ankit Puente MD [Physician] - (3 weeks. prefer to have appointment with Dr. Puente the same day as Dr. Ochoa's appointment if possible. ) - Forms/Instructions Instructions: Coronary Artery Disease (GEN), Left Heart Catheterization (DC), Heart Healthy Diet (GEN), Coronary Intravascular Stent Placement, Kiln Firer Helper (GEN) Exam - Constitutional Vitals: Period Temp Pulse Resp BP Sys/Larkin Pulse Ox Last 24 Hr 97.9 F-100.2 F 75-96 12-24 113-154/44-72 90-100 Exam: General: [Appears well with no apparent distress.] [Pleasant and cooperative. ] [Appears comfortable.] HEENT: [PERRL, normocephalic, atraumatic. Mucous membranes moist. No jaundice noted. Conjunctiva moist and clear, sclerae anicteric] Neck: No JVD/HJR, no thyromegaly or lymphadenopathy noted. No carotid bruit appreciated Cardiac: [Regular rate and rhythm.] [No murmur rub or gallop.] Lungs: [Lungs are relatively clear and not requiring oxygen domen: Soft, bowel sounds normoactive. Nontender and nondistended. No abdominal bruit or thrill noted. No masses noted. Musculoskeletal: No fluid collection. Decreased range of motion is noted. Extremities: Right groin soft, free of hematoma or bruit. No clubbing, cyanosis noted. [ No edema noted.] Upper extremity pulses 2+. Lower extremity pulses 2+. Capillary refill less than 3 seconds. Skin: No unusual lesions or rashes. No skin breakdown appreciated. Neuro: Awake, alert and oriented to person. Moves all extremities well without hemiparesis or paralysis. No essential tremor is appreciated. Discharge Results Procedures and tests throughout hospitalization: Pending Orders 04/23/17 02:58 Blood Culture Stat 04/23/17 11:15 Sputum Culture and Gram Stain Routine 04/24/17 08:50 AFB Culture/Smears Stat Bronchoalveolar Lavage C & GS Stat Fungal Culture w/ Prep Stat Labs on day of discharge: Labs from last 24 hours 04/24/17 04/24/17 04/24/17 04:07 04:07 04:07 WBC 9.1 RBC 3.78 L Hgb 10.8 L Hct 32.1 L MCV 84.9 L MCH 29 MCHC 33.6 RDW 13.7 Plt Count 174 MPV 10.5 Neut % (Auto) 56.4 Lymph % (Auto) 15.4 L [place] % (Auto) 12.8 H Eos % (Auto) 13.5 H Baso % (Auto) 1.3 H Neut # (Auto) 5.1 Lymph # (Auto) 1.4 [place] # (Auto) 1.2 H Eos # (Auto) 1.2 H Baso # (Auto) 0.1 Total Counted 100 Immature Gran % 0.6 Nucleated RBC % 0.0 Immature Gran # 0.05 Segmented Neutrophils 57 Lymphocytes 17 L Monocytes 9 Eosinophils 17 H Nucleated RBCs # 0.00 Platelet Estimate Normal Giant Platelets Few Immature Plt Fraction 0.0 Hypochromasia 1+ Microcytosis Slight INR 1.1 PT Patient/Control Mix 11.6 Circ Anticoag PTT 31.9 Sodium 140 Potassium 4.0 Chloride 106 Carbon Dioxide 28 Anion Gap 10.0 BUN 12 Creatinine 1.40 H GFR Calculation 35 BUN/Creatinine Ratio 8.00 Glucose 89 Calculated Osmolality 277.4 Calcium 8.3 L Magnesium 2.1 Preliminary micro results at discharge 04/23/17 02:58 Blood Culture - Preliminary Blood No growth at 1 day 04/23/17 02:58 Blood Culture - Preliminary Blood No growth at 1 day - Imaging and Cardiology Cardiology Procedure: report reviewed by wv Procedure: Chest x-ray: report reviewed by wv DS: Provider Date of admission: 04/23/17 13:01 Primary care physician: Ricco Bailey Attending physician on admission: Brodie Ochoa MD Consults: 04/22/17 10:16 Consult to Cardiac Rehabilitation [CONS] Routine Reason for Cardiac Rehabilitation: Risk Factor Modification Other Consult Comment: Evaluate and recommend 04/23/17 07:25 Consult to Physician [CONS] Routine Comment: Consulting Provider: Ankit Puente Consult to Specialist Group: Pulmonology Person Notified: Jeannie Date Notified: 04/23/17 Time Notified: 07:50 Discharging clinician: Flores Calles NP Expected date of discharge: 04/24/17
--- NOTE | 2017-04-24 10:34 | Pulmonology Progress Note ---
Pulmonary - PN: Subj Interval history: Eulogio Rosa, AGPCNP-, acting as scribe for Dr. Ankit Thomas Ms. Floyd is an 87-year-old white female who we saw in initial pulmonary consultation 04/23/2017. At that time, our impressions were: 1. Mild obstructive lung disease. Asthma. 2. Bronchitis with a cough. Patient says she cannot produce any sputum. 3. Complaint of left flap over her trachea 4. Arteriosclerotic heart disease. Post cardiac cath. Stent placed in circumflex artery. 5. High blood pressure 6. Gout 7. Degenerative joint disease 8. See past history 04/24/2017. Earlier today the patient underwent fiberoptic bronchoscopy by Dr. Thomas. 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 Please see the bronchoscopy report for more information. Afterwards the findings were discussed with the patient and her daughter to their understanding. We have also discussed the findings with the [facility] team. From our standpoint patient can be discharged home on continued antibiotics for 2 weeks. She also needs to continue Mucinex 600 mg twice daily. Medications have been reviewed. Labs been reviewed. White count is 9100 with 56.4% segs; H&H 10.8/32.1; platelet count 174,000; INR 1.1; creatinine 1.40, BUN 12, electrolytes are normal Exam (Progress Note) - Constitutional Vitals: Period Temp Pulse Resp BP Sys/Larkin Pulse Ox Last 24 Hr 97.9 F-100.2 F 75-96 12-24 113-154/44-72 90-100 Exam: Chest with tracheal enlargement airway congestion which was improved post bronchoscopy Heart no gallop Abdomen is nontender and nondistended; bowel sounds are positive 4 Extremities with nothing to suggest acute deep venous thrombophlebitis Psychiatric oriented 3 Neurologic long tract motor function intact Plan: From a pulmonary standpoint the patient can be discharged when okay with cardiology. She needs to continue Levaquin 250 mg daily for 14 days. Continue Mucinex 600 mg twice daily. She can keep her already scheduled appointment with Dr. Thomas. We will sign off. Please reconsult as needed. Results - Labs CBC & BMP: 04/24/17 04:07 04/24/17 04:07 Specialty Discharge - Follow Up or Referrals Follow up with: Brodie Ochoa MD [Physician] - (3 weeks) Ankit Thomas MD [Physician] - (3 weeks. prefer to have appointment with Dr. Thomas the same day as Dr. Ochoa's appointment if possible. )
[2017-04-24] MEDS: MULTIVITAMIN (CENTRUM) TABLET PO SCH (10:39)
[2017-04-24] MEDS: POTASSIUM CHLORIDE 20 MEQ TABLET PO SCH (10:39)
[2017-04-24] MEDS: CLOPIDOGREL 75 MG TABLET PO SCH (10:40)
[2017-04-24] MEDS: CARVEDILOL 12.5 MG TABLET PO SCH (10:41)
[2017-04-24] MEDS: FUROSEMIDE 40 MG TABLET PO SCH (10:41)
[2017-04-24] MEDS: FAMOTIDINE 20 MG TABLET PO SCH (10:41)
[2017-04-24] MEDS: MONTELUKAST 10 MG TABLET PO SCH (10:41)
[2017-04-24] MEDS: ASPIRIN EC 81 MG TABLET PO SCH (10:41)
[2017-04-24] MEDS: ALBUTEROL 0.4 MG/ML 30 ML/BOTTLE PO SCH (10:41)
[2017-04-24] MEDS: CLOTRIMAZOLE 1% CREAM 15 GM TUBE TOP SCH (10:42)
[2017-04-24] MEDS: LEVOFLOXACIN INJ 250 MG in PREMIX 1 EACH IV SCH (11:47)
[2017-04-24 12:00] VITALS: BP 117/57
--- NOTE | 2017-04-28 09:15 | Pathology Report from [facility] ---
[facility] [place] ACCESSION # : [id number] PATIENT NAME : Lizzeth Floyd ORDERING DR : PRASAD PUENTE MD CLINICAL HX: Cough POST-OP DX: Same SPECIMEN INFO: Washing,Bronchial,JOVANA - 10 mls light osman, cloudy with white particles. CLASS: II CLASS COMMENTS: Much inflammation with reactive/hyperplastic respiratory cells.CELL BLOCK: Same CLASS LEGEND: CLASS 0 Material inadequate for diagnosis because of (see comment) CLASS I Absence of atypical or abnormal cells CLASS II Atypical Cytology but no evidence of malignancy CLASS III Cytology suggestive of but not conclusive for malignancy CLASS IV Cytology strongly suggestive of malignancy CLASS V Cytology conclusive for malignancy COLLECTED DATE: 04/24/2017 [facility] REPORT DATE: 04/27/2017 ELECTRONICALLY SIGNED BY: Simeon Harper III, M.D. 04/27/2017 - 9:21:08 [place]
--- NOTE | 2017-04-28 16:56 | Order Completion Report ---
See report scanned to EMR
--- NOTE | 2017-04-29 07:01 | Physician Query Form ---
CLICK EDIT DOCUMENT TO SELECT QUERY ANSWER --> OK --> SIGN Kiara Barclay RN, CCDS Certified Clinical Armored Service Technician W) [phone] (f) [phone] [email or web address] PROVIDERS: Make your selection(s) from the choices in EACH section by typing an "x" and enter comments in the comment section. Please use your independent medical judgment in providing your response. This request does not imply that any particular answer is desired or expected. CLINICAL INDICATORS: (Providers should not edit this section) The medical record indicates that the patient was admitted with COPD exacerbation, History of CHF, "LVEF 60%", and the patient is on Coreg. As the attending MD can you please clarify the type of CHF based only on the History of CHF. Please provide further specificity regarding CHF. ACUITY: ( ) Acute ( ) Chronic ( ) Acute on Chronic ( ) Clinically unable to determine TYPE: ( ) Systolic (HFrEF - heart failure with reduced systolic function/EF) ( ) Diastolic (HFpEF - heart failure with preserved systolic function/EF) ( ) Combined Systolic/Diastolic ( X) Other, please specify: PATIENT DOES NOT HAVE CHF. THERE IS NO MENTION OF CHF IN THIS NOTE. SHE MAY HAVE A HISTORY OF CHF BUT NOT DURING THIS ADMISSION. ( ) Clinically unable to determine ( ) Past Medical History of Systolic CHF ( ) Past Medical History of Diastolic CHF ( ) Clinically unable to determine COMMENTS: PLEASE ALSO DOCUMENT RESPONSE IN PROGRESS NOTES AND/OR DISCHARGE SUMMARY Use of terms such as suspected, likely, or probable (associated with a specific diagnosis that is being evaluated, monitored, or treated as if it exists) are acceptable and can be restated in the discharge summary if not ruled out. MTDD
== END 2017-04-24 13:07 | disposition home health service (06) | DRG 247 ==
LOC: N.CL 05:57 → N.TELEN 14:13
PROVIDERS: ADMIT Internal Medicine Interventional Cardiology; ATTEND Internal Medicine Interventional Cardiology

== ENCOUNTER 2019-11-08 18:51 | Inpatient (IN) ==
[2019-11-08] MEDS ORDERED: GLUCAGON 1 MG VIAL IM PRN (20:35)
[2019-11-08] MEDS ORDERED: ONDANSETRON 4 MG/2 ML VIAL IV PRN (20:35)
[2019-11-08] MEDS ORDERED: NICOTINE 21 MG/24 HR PATCH TRANSDERM PRN (20:35)
[2019-11-08] MEDS ORDERED: hydrALAZINE 20 MG/1 ML VIAL IV PRN (20:35)
[2019-11-08] MEDS ORDERED: DEXTROSE 10% 250 ML BAG IV PRN (20:59)
[2019-11-08] MEDS ORDERED: ALBUTEROL 2.5 MG/3 ML NEB RESP TX PRN (21:32)
[2019-11-08 22:01] LABS: Basophils # 0.2 10*3/uL (0.0-0.2); Basophils % 1.1 % (0.0-0.8); Eosinophils % 18.5 % (0.00-10.9); Hematocrit 47.5 VOL% (35.7-47.0); Hemoglobin 15.8 GM/DL (12.0-16.0); Immature Granulocytes % 0.5 %; Immature Granulocytes Absolute 0.08 #; Lymphocytes # 1.4 10*3/uL (1.4-4.0); Lymphocytes % 8.6 % (21.3-54.2); Mean Corpuscular HGB Conc 33.3 GM/DL (32-36); Mean Corpuscular Volume 85.7 FL (87-102); Mean Platelet Volume 10.1 FL (9.6-12.0); Monocytes % 7.2 % (1.7-12.7); Neutrophils % 64.1 % (38.7-73.9); Platelet Count 274 T/CUMM (130-400); Red Blood Count 5.54 MC/CUMM (3.8-5.5); Red Cell Distribution Width 13.1 % (9.3-17.3); White Blood Count 16.2 T/CUMM (4-12)
[2019-11-08] MEDS: SODIUM CHLORIDE 0.9% 1,000 ML IV SCH (22:10)
[2019-11-08 22:34] LABS: Albumin 3.9 G/DL (3.4-5.0); Bilirubin,Total 0.8 MG/DL (0.2-1.0); Calcium 10.2 MG/DL (8.5-10.1); Osmolality,Calculated 282.3 MOS/KG (273-304); Total Protein 6.7 G/DL (6.4-8.3)
[2019-11-09] MEDS: ALBUTEROL/IPRATROPIUM 3 ML NEB RESP TX SCH ×4 (00:36→19:40)
[2019-11-09 01:20] LABS: Eosinophils 19 % (0-10); Lymphocytes 8 % (20-55); Segmented Neutrophils 67 % (50-85); Total Cells Counted 100
[2019-11-09 01:21] LABS: Platelet Estimate Normal
[2019-11-09] MEDS ORDERED: ceFAZolin 1,000 MG in SYRINGE 1 EACH IV ONE (06:43)
[2019-11-09] MEDS ORDERED: ROPIVACAINE 0.5% 30 ML VIAL ONE (06:58)
[2019-11-09] MEDS ORDERED: DEXAMETHASONE 4 MG/1 ML VIAL ONE (06:58)
[2019-11-09] MEDS ORDERED: MAGNESIUM HYDROXIDE SUSP 30 ML UDCUP PO PRN (07:29)
[2019-11-09] MEDS ORDERED: HYDROmorphone 2 MG/1 ML VIAL IV PRN (07:29)
[2019-11-09] MEDS ORDERED: ALBUTEROL 2.5 MG/3 ML NEB RESP TX ONE (07:50)
[2019-11-09] MEDS: DOCUSATE SODIUM 100 MG CAPSULE PO SCH ×2 (08:13→20:06)
[2019-11-09] MEDS ORDERED: BACITRACIN OINT 0.9 GM PACK TOP ONE (08:26)
[2019-11-09] MEDS ORDERED: MIDAZOLAM 2 MG/2 ML VIAL ONE (09:03)
[2019-11-09] MEDS ORDERED: ONDANSETRON 4 MG/2 ML VIAL ONE (09:03)
[2019-11-09] MEDS ORDERED: LIDOCAINE 2% 5 ML VIAL ONE (09:03)
[2019-11-09] MEDS ORDERED: KETOROLAC 30 MG/1 ML VIAL ONE (09:03)
[2019-11-09] MEDS ORDERED: GLYCOPYRROLATE 0.4 MG/2 ML VIAL ONE (09:03)
[2019-11-09] MEDS ORDERED: propofoL 200 MG/20 ML VIAL IV ONE (09:03)
[2019-11-09] MEDS ORDERED: SUCCINYLCHOLINE 200 MG/10 ML VIAL ONE (09:04)
[2019-11-09] MEDS ORDERED: PHENYLEPHRINE 1 MG/10 ML SYRINGE IV ONE (09:04)
[2019-11-09] MEDS ORDERED: ROCURONIUM 100 MG/10 ML VIAL IV ONE (09:04)
[2019-11-09] MEDS ORDERED: NEOSTIGMINE 10 MG/10 ML VIAL ONE (09:04)
[2019-11-09] MEDS ORDERED: SEVOFLURANE 1 UNIT/15 MINUTE INH ONE (09:05)
[2019-11-09] MEDS ORDERED: SODIUM CHLORIDE 0.9% 1,000 ML IV ONE (09:05)
[2019-11-09] MEDS: SODIUM CHLORIDE 0.9% 1,000 ML IV SCH ×2 (10:01→22:35)
[2019-11-09] MEDS ORDERED: NITROGLYCERIN SL 0.4 MG TABLET SL PRN (10:25)
[2019-11-09] MEDS: ceFAZolin 1,000 MG in SYRINGE 1 EACH IV SCH ×2 (11:42→20:07)
[2019-11-09] MEDS: carvediloL 12.5 MG TABLET PO SCH (11:42)
[2019-11-09] MEDS ORDERED: TUBERCULIN SKIN TEST 0.1 ML SYRINGE INTRADERM ONE (15:01)
[2019-11-09] MEDS: FUROSEMIDE 40 MG TABLET PO SCH (16:10)
[2019-11-09] MEDS: ISOSORBIDE MONONITRATE 30 MG TABLET PO SCH (20:06)
[2019-11-10] MEDS: ALBUTEROL/IPRATROPIUM 3 ML NEB RESP TX SCH ×4 (00:50→19:19)
[2019-11-10 06:06] LABS: Basophils % 0.3 % (0.0-0.8); Eosinophils # 0.1 10*3/uL (0.0-0.87); Eosinophils % 0.5 % (0.00-10.9); Hematocrit 35.8 VOL% (35.7-47.0); Hemoglobin 11.7 GM/DL (12.0-16.0); Immature Granulocytes % 0.6 %; Immature Granulocytes Absolute 0.08 #; Lymphocytes % 7.7 % (21.3-54.2); Mean Corpuscular HGB Conc 32.7 GM/DL (32-36); Mean Corpuscular Volume 86.7 FL (87-102); Mean Platelet Volume 10.4 FL (9.6-12.0); Monocytes % 7.3 % (1.7-12.7); Neutrophils % 83.6 % (38.7-73.9); Platelet Count 215 T/CUMM (130-400); Red Blood Count 4.13 MC/CUMM (3.8-5.5); Red Cell Distribution Width 13.1 % (9.3-17.3); White Blood Count 12.9 T/CUMM (4-12)
[2019-11-10 06:21] LABS: Calcium 8.3 MG/DL (8.5-10.1)
[2019-11-10] MEDS ORDERED: ASPIRIN EC 81 MG TABLET PO SCH (09:00)
[2019-11-10] MEDS: FUROSEMIDE 40 MG TABLET PO SCH ×2 (09:03→16:32)
[2019-11-10] MEDS: DOCUSATE SODIUM 100 MG CAPSULE PO SCH ×2 (09:04→21:23)
[2019-11-10] MEDS: carvediloL 12.5 MG TABLET PO SCH (09:04)
[2019-11-10] MEDS: ASPIRIN 325 MG TABLET PO SCH (09:46)
[2019-11-10] MEDS ORDERED: carvediloL 6.25 MG TABLET PO ONE (10:26)
[2019-11-10] MEDS ORDERED: amLODIPine 10 MG TABLET PO ONE (17:05)
[2019-11-10] MEDS: carvediloL 25 MG TABLET PO SCH (20:10)
[2019-11-10] MEDS: ISOSORBIDE MONONITRATE 30 MG TABLET PO SCH (20:10)
[2019-11-11] MEDS: ALBUTEROL/IPRATROPIUM 3 ML NEB RESP TX SCH ×3 (00:58→12:48)
[2019-11-11 06:03] LABS: Basophils # 0.1 10*3/uL (0.0-0.2); Basophils % 1.1 % (0.0-0.8); Eosinophils % 8.5 % (0.00-10.9); Hematocrit 37.5 VOL% (35.7-47.0); Hemoglobin 12.2 GM/DL (12.0-16.0); Immature Granulocytes % 0.8 %; Lymphocytes # 1.2 10*3/uL (1.4-4.0); Lymphocytes % 10.2 % (21.3-54.2); Mean Corpuscular HGB Conc 32.5 GM/DL (32-36); Mean Corpuscular Volume 87.4 FL (87-102); Mean Platelet Volume 10.4 FL (9.6-12.0); Monocytes % 10.1 % (1.7-12.7); Neutrophils % 69.3 % (38.7-73.9); Platelet Count 239 T/CUMM (130-400); Red Blood Count 4.29 MC/CUMM (3.8-5.5); Red Cell Distribution Width 13.3 % (9.3-17.3); White Blood Count 11.8 T/CUMM (4-12)
[2019-11-11 06:24] LABS: Calcium 8.7 MG/DL (8.5-10.1); Osmolality,Calculated 283.3 MOS/KG (273-304)
[2019-11-11 07:57] VITALS: BP 141/60
[2019-11-11] MEDS ORDERED: ROSUVASTATIN 10 MG TABLET PO SCH (09:00)
[2019-11-11] MEDS ORDERED: FUROSEMIDE 40 MG TABLET PO SCH (09:00)
[2019-11-11] MEDS ORDERED: amLODIPine 10 MG TABLET PO SCH (09:00)
[2019-11-11] MEDS: DOCUSATE SODIUM 100 MG CAPSULE PO SCH (09:53)
[2019-11-11] MEDS: ASPIRIN 325 MG TABLET PO SCH (09:54)
[2019-11-11] MEDS: carvediloL 25 MG TABLET PO SCH (09:54)
== END 2019-11-11 14:00 | disposition swing bed (61) | DRG 481 ==
LOC: N.ED 18:51 → N.EDINP 20:35 → N.3E 21:15
PROVIDERS: ADMIT Internal Medicine; ATTEND Internal Medicine